=== PATIENT | male | born 2000 | race Hispanic/Latino ===

== ENCOUNTER 2023-12-27 22:23 | Emergency (ER) | payer OTHER ==
[~2023-12-27] VITALS: Ht 162.6 cm; Wt 81.2 kg
[~2023-12-27 22:23] MED LIST: ACET-2079 PO; AMOX1TAB16 PO; IBUP-2070 PO
[2023-12-27] MEDS ORDERED: OFLO5DRO OD (23:06)
[2023-12-27] MEDS: HYDROCODONE/ACETAMINOPHEN 5/325 MG TAB PO STA (23:10)
[2023-12-27] MEDS: KETOROLAC 15MG/ML VIAL (15MG/ML) IM STA (23:10)
[2023-12-27] MEDS ORDERED: OFLO5DRO21 OT (23:52)
[2023-12-27 23:55] VITALS: BP 128/78; PULSE 82; RESP 16; O2SAT 99
== END 2023-12-27 23:56 | disposition home or self-care (01) ==
LOC: EDH 22:23
DX: H66.93 Otitis media, unspecified, bilateral (principal); Z79.899 Other long term (current) drug therapy
CPT/HCPCS: 99283; 96372; J1885